=== PATIENT | female | born 1970 | race Two or more races ===

== ENCOUNTER 2024-03-24 14:26 | Emergency (ER) | payer SELFPAY ==
[~2024-03-24] VITALS: Ht 157.5 cm; Wt 56.8 kg
[2024-03-24 14:33] VITALS: TEMP 98.2
[2024-03-24] MEDS ORDERED: INSU100I75 SQ (14:35)
[2024-03-24] MEDS ORDERED: IBUP-2853 PO (14:35)
[2024-03-24 14:51] LABS: GLUCOMETER DEV NAME(LOC) ER.7; GLUCOSE,POINT OF CARE 462 MG/DL (70-110)
[2024-03-24] MEDS ORDERED: IBUP-45 PO (15:44)
[2024-03-24] MEDS: SODIUM CHLORIDE 0.9% 1,000 ML IV ONE (16:40)
[2024-03-24] MEDS: TraMADol HCL 50 MG TABLET PO ONE (16:48)
[2024-03-24 16:53] LABS: BASOPHILS % (AUTO) 0.3 % (0.0-2.0); EOSINOPHILS % (AUTO) 1.5 % (1.0-6.0); HEMATOCRIT 37.9 % (36-46); HEMOGLOBIN 12.7 g/dL (12.0-16.0); LYMPHOCYTES # (AUTO) 2.3 K/uL (1.0-4.8); LYMPHOCYTES % (AUTO) 31.8 % (22.0-44.0); MEAN CORPUSCULAR HGB CONC 33.5 G/dL (31.0-37.0); MEAN CORPUSCULAR VOLUME 84 fL (80-100); MONOCYTES # (AUTO) 0.7 K/uL (0.1-1.0); MONOCYTES % (AUTO) 9.5 % (2.0-9.0); NEUTROPHILS # (AUTO) 4.2 K/uL (1.8-7.7); NEUTROPHILS % (AUTO) 56.9 % (40.0-70.0); PLATELET COUNT (AUTO) 254 K/uL (150-450); RED BLOOD CELL COUNT(AUTO) 4.53 MIL/uL (4.00-5.20); RED CELL DISTRIBUTION WIDTH 12.7 % (11.5-14.5); WHITE BLOOD COUNT (AUTO) 7.3 K/uL (4.5-11.0)
[2024-03-24 16:59] LABS: ANION GAP 12 mmol/L (8-16); CALCIUM, TOTAL 8.3 mg/dL (8.8-10.5); CARBON DIOXIDE 21 mmol/L (22-29); CHLORIDE 99 mmol/L (98-107); CREATININE 0.61 mg/dL (0.60-1.30); GLOMERULAR FILTR. RATE CALC > 60 mL/min (>60); GLUCOSE,RANDOM 337 mg/dL (70-110); POTASSIUM 3.5 mmol/L (3.5-5.1); SODIUM SERUM 132 mmol/L (136-145); UREA NITROGEN, BLOOD 13 mg/dL (7-18)
[2024-03-24] MEDS ORDERED: TRAM50TA5 PO (21:03)
[2024-03-24 21:45] VITALS: BP 125/63; PULSE 80; RESP 17; O2SAT 97
== END 2024-03-24 22:22 | disposition home or self-care (01) ==
LOC: EMS 14:26
DX: S39.011A Strain of muscle, fascia and tendon of abdomen, initial encounter (principal); M79.604 Pain in right leg; E11.9 Type 2 diabetes mellitus without complications; X58.XXXA Exposure to other specified factors, initial encounter; Y93.89 Activity, other specified; Y92.89 Other specified places as the place of occurrence of the external cause; Y99.8 Other external cause status
CPT/HCPCS: 99284; 96360; 93971; 80048; 82009; 82962; 85025; 36415; 73502; J7030